=== PATIENT | female | born 1965 | race Caucasian/White ===

== ENCOUNTER 2022-02-10 11:50 | Inpatient (IN) | payer MEDICAID, OTHER ==
[2022-02-10] MEDS ORDERED: HALOPERIDOL LACTATE 5 MG/ML 1 ML VIAL IM PRN (12:37)
[2022-02-10] MEDS ORDERED: MAGNESIUM HYDROXIDE 2,400 MG/10 ML CUP PO PRN (12:37)
[2022-02-10] MEDS ORDERED: ACETAMINOPHEN TAB 325 MG TAB PO PRN (12:37)
[2022-02-10] MEDS ORDERED: MAG HYDROX/AL HYDROX/SIMETH 30 ML CUP PO PRN (12:37)
[2022-02-10] MEDS ORDERED: LORazepam 2 MG/ML INJ IM PRN (12:41)
[2022-02-10] MEDS ORDERED: LORazepam 1 MG TAB PO SCH (21:00)
[2022-02-10] MEDS ORDERED: BUPRENORPHINE NALOXONE PO SCH (22:45)
[2022-02-10] MEDS ORDERED: BUPRENORPHINE-NALOX 8-2 MG TAB 1 EACH TAB.SUBL SL SCH (22:45)
[2022-02-10] MEDS: BUPRENORPHINE-NALOX 8-2 MG TAB 1 EACH TAB.SUBL SL SCH (23:00)
--- NOTE | 2022-02-11 01:15 | P.CONS ---
History of Present Illness - Reason for Consult Consult date: 02/10/22 - History of Present Illness The patient is a 56-year-old female with a PMH of hypertension, ovarian cancer status post chemotherapy and surgical resection now in remission, osteoporosis of right knee, EtOH abuse, tobacco abuse, depression who was transferred from [facility] where the patient had been admitted after the patient attempted suicide by cutting her wrists bilaterally with a razor blade. The pat albina had 3 sutures placed on the wrists and was transferred to the mental health unit where she was seen and evaluated. The patient reported that she has been undergoing a lot of stress recently due to an inability to hold a job and currently undergoing eviction and waiting to be kicked out of her house. When I asked the patient about alcohol and tobacco use history, the patient became tearful and stated that she felt that I was judging her. I subsequently asked for JanetN on the mental health unit to accompany me as a living advisor who was present for the rest of the interview. The patient stated that she gets financial assistance from her ex- which is how she is able to purchase her alcohol. She reported drinking a fifth of hard liquor daily for the past several years. Stated that her last drink was roughly 4-5 days ago and that she felt shaky. She also reports being estranged from her children. She denied any additional physical complaints at the time of interview. She denied experiencing chest discomfort, shortness of breath, fever, chills, cough, nausea, vomiting, abdominal pain, diarrhea. Review of systems: Pertinent positives and negatives as discussed in HPI, a complete review of systems was performed and all other systems are negative. Physical examination: General: non toxic, no distress, appears at stated age, normal weight Derm: Bilateral wrist lacerations noted with overlying dressings in place, warm, dry Head: atraumatic, normocephalic, symmetric Eyes: EOMI, no lid lag, anicteric sclera ENT: Nose and ears atraumatic, no thrush, no pharyngeal erythema Neck: trachea midline, supple Mouth: no lip lesion, mucus membranes moist Cardiovascular: S1S2 reg, no murmur, no edema Lungs: CTA bilateral, no rhonchi, no rales , no accessory muscle use Abdominal: soft, nontender to palpation, no guarding Ext: no gross muscle atrophy, no contractures, Neuro: No gross focal neuro deficits noted Psych: Alert, oriented, tearful Assessment/plan Wrist lacerations w/ sutures -Wound care consult Chronic Suboxone use -Home dose ordered as confirmed EtOH abuse -Strongly advised on importance of cessation -CIWA protocol Depression with suicidal ideation -As per psychiatry Thank you for allowing us to participate in the care of this patient. We will follow peripherally. Do not hesitate to contact us with questions. Someone can be reached from the [facility] hospitalist group at all hours of the day at [phone]. Past Medical History History of Any Multi-Drug Resistant Organisms: None Reported Smoking Status: Current every day smoker - Past Family History Mother Additional Family Medical History / Comment(s): EtOH abuse Medications and Allergies Home Medications Medication Instructions Recorded Confirmed Type Unable To Assess [Unable to Assess] 02/10/22 02/10/22 History Allergies Allergy/AdvReac Type Severity Reaction Status Date / Time cephalexin [From Keflex] AdvReac Intermediate Unknown Verified 02/10/22 20:39 Physical Exam Vitals: Vital Signs Temp Pulse Resp BP 02/10/22 20:27 98.3 F 54 L 16 108/54 Intake and Output 02/10/22 02/10/22 02/10/22 06:59 14:59 22:59 Other: Weight 68 kg 68 kg
[2022-02-11] MEDS: LORazepam 1 MG TAB PO PRN ×3 (04:02→20:43)
[2022-02-11] MEDS: NICOTINE 14MG/24HR PATCH TRANSDERM SCH (08:35)
[2022-02-11] MEDS: METOPROLOL TARTRATE 25 MG TAB PO SCH (08:36)
[2022-02-11] MEDS ORDERED: FLUoxetine HCL 20 MG CAP PO SCH (09:00)
[2022-02-11] MEDS: BUPRENORPHINE-NALOX 8-2 MG TAB 1 EACH TAB.SUBL SL SCH ×3 (09:04→20:41)
[2022-02-11 12:11] LABS: Chol/HDL Ratio 2.74 Ratio; LDL Cholesterol,Calculated 86.4 mg/dL (0.0-131.0); VLDL Calculation 13.26 mg/dL (5.00-40.00)
[2022-02-11] MEDS ORDERED: FLUoxetine HCL 20 MG CAP PO ONE (12:45)
[2022-02-11] MEDS ORDERED: ONDANSETRON 4 MG TAB PO PRN (13:28)
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
[2022-02-11] MEDS: GABAPENTIN 300 MG CAP PO SCH ×2 (15:39→20:41)
[2022-02-11] MEDS: haloperidoL 5 MG TAB PO PRN (17:35)
[2022-02-11] MEDS: valACYclovir HCL 500 MG TAB PO SCH (18:25)
[2022-02-11] MEDS: ARIPiprazole 5 MG TAB PO SCH (20:41)
[2022-02-12] MEDS: valACYclovir HCL 500 MG TAB PO SCH ×2 (08:54→18:59)
[2022-02-12] MEDS: GABAPENTIN 300 MG CAP PO SCH ×3 (08:57→21:40)
[2022-02-12] MEDS: METOPROLOL TARTRATE 25 MG TAB PO SCH (08:57)
[2022-02-12] MEDS: FLUoxetine HCL 20 MG CAP PO SCH (08:57)
[2022-02-12] MEDS: NICOTINE 14MG/24HR PATCH TRANSDERM SCH (08:59)
[2022-02-12] MEDS: LORazepam 1 MG TAB PO PRN (09:00)
[2022-02-12] MEDS: BUPRENORPHINE-NALOX 8-2 MG TAB 1 EACH TAB.SUBL SL SCH ×3 (09:36→21:41)
[2022-02-12 11:32] VITALS: BMI 24.2
--- NOTE | 2022-02-12 12:14 | P.PN ---
Progress Note - Text Progress Note Date: 02/12/22 Interval History: Patient was seen lying in her bed today and was directable and agreeable to sp dav with automobile service writer in the office. Patient was sleeping and awoken by automobile service writer. She states that she is feeling a bit better today with regards to her mood and anxiety. She spoke briefly about why she came to the hospital about cutting her wrists and also her need for orthopedic surgery on her leg. She claims that she is in the eviction process at this time needs to find a new place to live. She claims that she is regretful for what she has done to herself denies having any access to guns or weapons. States that she is able to sleep much better last night. she claims that she would like to go home tomorrow. At this time patient denies any suicidal or homical ideations, intent or plan. Patient denies any auditory, visual hallucinations and denies any paranoia or delusions. Patient denies any side effects from the medications and has been compliant with meds. Mental Status Exam: General Appearance: Patient appears to be thin, discheveled hair, bandages on wrists bilaterally, stated age is alert, directable, and cooperative. Behavior: Patient is calmly seated without any agitated behavior. cooperative Speech: Patient's speech is fluent and nonpressured. rambles at times. Mood/Affect: Mood is improving mildly, affect is congruent and constricted. Suicidality/Homicidality: Patient denies having any suicidal or homicidal ideation intent or plan. Perceptions: Patient denies any visual hallucinations and denies any auditory hallucinations Though content/process: There is no evidence of any delusional thought content and thought process is linear and goal-directed. Memory and concentration: AOX3, grossly intact for the purposes of this session Judgment and insight: Improving mildly Assessment Major depressive disorder, without psychotic features panic Disorder PTSD Alcohol abuse Opioid dependence, currently on agonist therapy Plan: -Patient continues to meet criteria for inpatient psychiatric admission for symptom stabilization and safety. Patient has signed adult voluntary form and medication consent and was placed in patient's chart. -Medications: abilify po 5 mg qhs for mood adjunct, prozac 80 mg daily for mood/anxiety. -When necessary Ativan and Haldol for agitation/aggression. -NRT - nicotine patch -SW on board for discharge planning. Encouraged the patient to participate in milieu. likely discharge tomorrow.
[2022-02-12] MEDS: IBUPROFEN 800 MG TAB PO PRN ×2 (14:15→18:57)
[2022-02-12] MEDS: haloperidoL 5 MG TAB PO PRN (18:57)
[2022-02-12] MEDS: ARIPiprazole 5 MG TAB PO SCH (21:39)
[2022-02-13 06:58] VITALS: RESP 17; TEMP 98.2
[2022-02-13] MEDS: valACYclovir HCL 500 MG TAB PO SCH (08:39)
[2022-02-13] MEDS: GABAPENTIN 300 MG CAP PO SCH ×2 (08:39→15:29)
[2022-02-13] MEDS: NICOTINE 14MG/24HR PATCH TRANSDERM SCH (08:39)
[2022-02-13] MEDS: FLUoxetine HCL 20 MG CAP PO SCH (08:39)
[2022-02-13] MEDS: METOPROLOL TARTRATE 25 MG TAB PO SCH (08:40)
[2022-02-13] MEDS: LORazepam 1 MG TAB PO PRN (08:43)
[2022-02-13 08:45] VITALS: BP 117/64; PULSE 65
[2022-02-13] MEDS: BUPRENORPHINE-NALOX 8-2 MG TAB 1 EACH TAB.SUBL SL SCH ×2 (09:11→15:29)
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
[2022-02-13] MEDS: IBUPROFEN 800 MG TAB PO PRN (15:30)
== END 2022-02-13 17:50 | disposition home or self-care (01) | DRG 885 ==
LOC: 3MHU 19:16
PROVIDERS: ADMIT Psychiatry & Neurology Psychiatry; ATTEND Psychiatry & Neurology Psychiatry
PROC: HZ2ZZZZ Detoxification Services for Substance Abuse Treatment (ICD-10-PCS; principal; 2022-02-10)
PROC: 0HQEXZZ Repair Left Lower Arm Skin, External Approach (ICD-10-PCS; 2022-02-10)
PROC: 0HQDXZZ Repair Right Lower Arm Skin, External Approach (ICD-10-PCS; 2022-02-10)
DX: F33.9 Major depressive disorder, recurrent, unspecified (principal); F11.20 Opioid dependence, uncomplicated; R45.851 Suicidal ideations; F10.10 Alcohol abuse, uncomplicated; F17.210 Nicotine dependence, cigarettes, uncomplicated; F41.0 Panic disorder [episodic paroxysmal anxiety]; F43.10 Post-traumatic stress disorder, unspecified; I10 Essential (primary) hypertension; M81.0 Age-related osteoporosis without current pathological fracture; S61.511A Laceration without foreign body of right wrist, initial encounter; S61.512A Laceration without foreign body of left wrist, initial encounter; X78.9XXA Intentional self-harm by unspecified sharp object, initial encounter; Z79.899 Other long term (current) drug therapy; Z85.43 Personal history of malignant neoplasm of ovary; Z91.52 Personal history of nonsuicidal self-harm; Z92.21 Personal history of antineoplastic chemotherapy; Z88.1 Allergy status to other antibiotic agents; Z71.41 Alcohol abuse counseling and surveillance of alcoholic; Z71.51 Drug abuse counseling and surveillance of drug abuser
CPT/HCPCS: 80061; 83036; 84443